=== PATIENT | male | born 2000 | race Hispanic/Latino ===

== ENCOUNTER 2022-02-10 19:33 | Emergency (ER) | payer OTHER ==
[~2022-02-10] VITALS: Ht 182.9 cm; Wt 97.5 kg
== END 2022-02-10 22:52 | disposition home or self-care (01) ==
LOC: EDSEX 19:33 → FSED 20:08
DX: S93.492A Sprain of other ligament of left ankle, initial encounter (principal); W01.0XXA Fall on same level from slipping, tripping and stumbling without subsequent striking against object, initial encounter; Y93.01 Activity, walking, marching and hiking; Y99.0 Civilian activity done for income or pay; F17.210 Nicotine dependence, cigarettes, uncomplicated
CPT/HCPCS: 99283